=== PATIENT | female | born 1970 | race Caucasian/White ===

== ENCOUNTER → 2019-04-20 15:07 | Outpatient (CLI) | payer OTHER, SELFPAY ==
--- NOTE | 2019-04-20 15:09 | DI.US.S_ITS ---
PROCEDURE: US PELVIC COMPLETE INDICATIONS: EXCESSIVE MENSTRUAL FLOW TECHNIQUE: Real-time scanning was performed of the pelvic organs, with image documentation. Additional endovaginal scanning was necessary due to incomplete visualization of the adnexal and endometrial structures by transabdominal scanning. COMPARISON: None. FINDINGS: Transabdominal scanning: Limited scanning through the kidneys shows no hydronephrosis. No pathologic free abdominal or pelvic fluid. Endovaginal scanning: Uterus: Uterus is enlarged in size at 7.2 x 8.4 x 5.4 cm. The endometrium measures 8.0 mm in combined thickness. Multiple uterine fibroids present the largest of which is fundal and subserosal measuring 5.1 x 3.4 x 4.4 cm. Ovaries: Regressing physiologic cyst associated with the left ovary measuring 13 mm; otherwise ovaries are normal. IMPRESSION: Fibroid uterus. Dictated by: Ender MERINO Interpreted: Ute Nzaario MD on 04/20/2019 at 16:41 Approved by: Ute Nazario M.D. on 04/20/2019 at 18:15
== END ==
PROVIDERS: PCP Physician Assistant; Referring Provider Obstetrics & Gynecology; Visit Provider Obstetrics & Gynecology
DX: N92.0 Excessive and frequent menstruation with regular cycle (principal); D25.2 Subserosal leiomyoma of uterus
CPT/HCPCS: 76830; 76856

== ENCOUNTER → 2021-11-24 09:01 | Outpatient (CLI) | payer OTHER, SELFPAY ==
[2021-11-24 11:55] LABS: COVID19 -Nasal RAPID Negative (Negative)
== END ==
PROVIDERS: PCP Physician Assistant; Visit Provider Surgery
DX: Z20.822 Contact with and (suspected) exposure to COVID-19 (principal); Z01.812 Encounter for preprocedural laboratory examination
CPT/HCPCS: 87635; C9803

== ENCOUNTER 2021-11-25 13:17 | Day surgery (SDC) | payer OTHER, SELFPAY ==
[2021-11-25] VITALS (7 sets, daily range): BP systolic 94–152; BP diastolic 64–98; PULSE 78–99; RESP 12–18; TEMP 36.5–37; O2SAT 96–100; BMI 23.9
--- NOTE | 2021-11-25 | PATH_ITS ---
[facility] Accession Number: [id number] . 01 Material submitted: . PART A: sigmoid colon - SIGMOID COLON POLYP PART B: colon - DESCENDING COLON POLYP . 01 Diagnosis: A. Sigmoid Colon, Polyp, Biopsy: Hyperplastic polyp. . B. Descending Colon, Polyp, Biopsy: Multiple fragments of tubulovillous adenoma. No evidence of malignancy or high-grade dysplasia. MRV 11/27/2021 1200 Local . 01 Electronically signed: . Samantha Tariq MD, Pathologist NPI- [id number] . 01 Gross description: . Part A: SIGMOID COLON POLYP: Received in formalin is 1 fragment(s) of osei, soft tissue measuring 0.4 x 0.3 x 0.2 cm submitted entirely in 1 cassette(s) Part B: DESCENDING COLON POLYP: Received in formalin are multiple fragment(s) of osei, soft tissue measuring 1.5 x 1.0 x 0.5 cm to 1.5 x 0.5 x 0.1 cm which is bisected and submitted entirely in 2 cassette(s) /CPE 11/26/2021 0536 Local . 01 Pathologist provided ICD-10: D12.4 . 01 CPT . 777299, [id number] Performed at: 01 [facility] Cytology [address], [id number] MD Gerard Santiago MD Phone: [phone]
[2021-11-25] MEDS: LACTATED RINGERS 1,000 ML 200 ML IV (13:49)
--- NOTE | 2021-11-25 14:07 | P.HP_ITS ---
History of Present Illness History of Present Illness Date Patient Seen: 11/25/21 Time Patient Seen: 14:07 Chief complaint: SDC Narrative: The patient presents for colorectal screening. She had previously normal colonoscopy. No personal or family history of colon cancer. On further history denies any recent gastrointestinal symptoms. Patient History Medical History Chicken pox (~1974) Family history of breast cancer in first degree relative History of therapy for infertility JAYA (stress urinary incontinence, female) Surgical History Anesthesia History of breast augmentation (~06/2001) Status post colonoscopy Status post dilation and curettage (09/18/13) Family & Social History Family History Father Diabetes mellitus Mother Breast cancer Hypertension Grandmother Lung cancer Social History: household members spouse Tobacco & Substance use: Smoking Status Never smoker alcohol intake frequency a few times a month Substance Use Type does not use Meds Home Medications and Allergies Home Medications Medication Instructions Recorded Confirmed Type lisinopril 10 1 tab PO DAILY 11/25/21 11/25/21 History mg-hydrochlorothiazide 12.5 mg tablet Allergies Allergy/AdvReac Type Severity Reaction Status Date / Time morphine Allergy Hives Verified 11/25/21 13:52 Exam Vital Signs (past 8 hours): - 11/25/21 13:32 Temperature 97.7 F Pulse Rate 78 Respiratory Rate 16 Blood Pressure 131/82 Pulse Oximetry 100 Oxygen Delivery Method Room Air Oxygen Delivery Method Room Air Narrative Exam Narrative: General adult woman alert oriented no acute distress Abdomen soft nontender nondistended Assessment & Plan Assessment & Plan narrative: The patient requires colorectal screening and colonoscopy is recommended. Technical details were discussed. Risks, benefits, alternatives explained. Risks including but not limited to myocardial infarction, aspiration, bleeding, pain, missed lesion, incomplete examination, need for further radiographic studies, colonic perforation, and need for major abdominal surgery were discussed. All questions were answered to their satisfaction, and they are in a greement with this plan. Time Spent With Patient Critical Care time: I spent a total of [] minutes of critical care time on this patient's care today; this time is exclusive of procedural time.
[2021-11-25] MEDS: ONDANSETRON 4 MG/2 ML INJ IV (14:17)
[2021-11-25] MEDS: fentaNYL 100 MCG/2 ML INJ 200 MCG IV (14:38)
[2021-11-25] MEDS: MIDAZOLAM 5 MG/5 ML VIAL 7 MG IV (14:38)
--- NOTE | 2021-11-25 14:48 | PM.OP.COLON ---
Operative Date/Time/Diagnoses Date of procedure: 11/25/21 Time of procedure: 14:48 Pre-op diagnosis: Screening Procedure & Clinicians Study performed: Colonoscopy and polypectomy Same procedure as scheduled: Yes Indications: Screening Surgeon: Bill Martin Procedure Notes Procedure in detail: Medications: Conscious sedation using 7mg IV midazolam and 200mcg IV of fentanyl The history and physical was performed/updated and the patient is ASA class is 2. The procedure was discussed in detail with the patient. Potential risks complications including infection, bleeding, missed diagnosis, perforation, need for surgery, and were explained. Their questions were answered and informed consent was obtained. Patient was brought to the procedure room and placed standard monitoring equipment. The patient's vital signs were monitored continuously throughout the entire procedure. Prior to starting time-out was performed. The patient was placed in the left lateral recumbent position. Procedural sedation was administered. Examination began with a thorough inspection of the perianal area there was no evidence of fissures, fistulae, external hemorrhoids or cutaneous malignancy. The colonoscopy scope was then placed into the anal canal and was advanced to the cecum, which was identified by the ileocecal valve, the appendiceal orifice and the confluence of the taenia. The scope was then slowly withdrawn examining colon thoroughly in all directions, irrigating it of any residual stool. FINDINGS 1. Sigmoid colon-5 mm polyp removed with biopsy forceps 2. Descending colon 70 cm from the anal verge pedunculated 1.5 cm polyp removed with hot snare in pieces tattoo injected total of 2 mL prox to lesion The patient tolerated the procedure well. They will be discharged once criteria are met. The prep was of good/excellent quality. The withdrawl time was 8 minutes. The sedation time was 24 minutes. Specimen(s): other (Sigmoid colon polyp, descending colon polyp) Complications: none Impression: Colonic polyp Post-procedure Recommendations: Will call with biopsy results Disposition: same day surgery
== END 2021-11-25 15:44 | disposition home or self-care (01) ==
PROVIDERS: PCP Physician Assistant; Referring Provider Surgery; Visit Provider Surgery
PROC: 0DJD8ZZ Inspection of Lower Intestinal Tract, Via Natural or Artificial Opening Endoscopic (ICD-10-PCS; CPT 45378; principal; 2021-11-25 14:15)
DX: Z12.11 Encounter for screening for malignant neoplasm of colon (principal); D12.4 Benign neoplasm of descending colon
CPT/HCPCS: 45385; 45380; 45381; 99152; 99153; J2250; J2405; J3010

== ENCOUNTER → 2022-09-03 15:15 | Outpatient (CLI) | payer OTHER, SELFPAY ==
--- NOTE | 2022-09-03 15:16 | DI.US.S_ITS ---
PROCEDURE: US PELVIC COMPLETE INDICATIONS: HX OF FIBROIDS SWELLING FELT INSIDE VAGINA TECHNIQUE: Real-time scanning was performed of the pelvic organs, with image documentation. Additional endovaginal scanning was necessary due to incomplete visualization of the adnexal and endometrial structures by transabdominal scanning. COMPARISON: [facility], , US PELVIC COMPLETE, 04/20/2019, 15:25. FINDINGS: Uterus: Uterus is retroverted and enlarged in size at 7.5 x 7.6 x 8.7 cm. The myometrium is heterogeneous, containing innumerable fibroids. The endometrium measures 9 mm combined thickness. Nabothian cysts present. Largest uterine fibroids as follows: -left, posterior, subserosal fibroid measuring 3.6 x 3.9 x 3.3 cm, previously 3.9 x 3.0 x 3.2 cm. -right, anterior, fundal subserosal fibroid measuring 3.3 x 2.7 x 3.7 cm, previously 5.1 x 3.4 x 4.4 cm. Ovaries: The right ovary measures 2.6 x 2.1 x 2.5 cm, with a calculated ovarian volume of 7 cc. The left ovary measures 4.1 x 3.4 x 3.9 cm, with a calculated ovarian volume of 28 cc. Left ovarian cystic lesion with a mildly thickened wall measuring 2.7 cm. Other: No pathologic free abdominal or pelvic fluid. IMPRESSION: Myomatous uterus, with slight interval decrease in size of the dominant uterine fibroids. Left ovarian cystic lesion with a thick wall measuring 2.7 cm. Recommend follow-up in 6-12 weeks. We strive to produce accurate, complete, and clear reports of imaging services. To assist us in improving patient care, this report was composed using standard report templates and voice recognition software. Therefore, it may contain abnormal punctuation, insertions and/or omissions. Occasional wrong-word or sound-alike substitutions may occur. Though we review the report and make efforts to correct it, we do recommend that the report be read carefully in proper context to recognize any text inaccuracies. Dictated by: Rajesh Ibarra M.D. on 09/03/2022 at 17:08 Approved by: Rajesh Ibarra M.D. on 09/03/2022 at 17:11
== END ==
PROVIDERS: PCP Physician Assistant; Referring Provider Specialist; Visit Provider Specialist
DX: D25.2 Subserosal leiomyoma of uterus (principal); N83.202 Unspecified ovarian cyst, left side; N88.8 Other specified noninflammatory disorders of cervix uteri; Z86.018 Personal history of other benign neoplasm
CPT/HCPCS: 76830; 76856

== ENCOUNTER 2023-01-01 15:00 | Outpatient (RCR) | payer OTHER, SELFPAY ==
--- NOTE | 2022-12-18 18:42 | PT.OIE ---
Current Diagnoses Stress incontinence (female) (male) (12/18/22) Uterovaginal prolapse, unspecified (12/18/22) Past Medical History (Last Reviewed 11/25/21 @ 14:08 by Bill Martin MD) Chicken pox (~1974) Family history of breast cancer in first degree relative History of therapy for infertility JAYA (stress urinary incontinence, female) Past Surgical History (Last Reviewed 11/25/21 @ 14:08 by Bill Martin MD) Anesthesia History of breast augmentation (~06/2001) Status post colonoscopy Status post dilation and curettage (09/18/13) Visit Care Team Role Provider Type Dia Hylton PA-C Family Provider Non-Staff Primary Care Provider Specialty: Medical Address: [address] [place] [address], [id number] Email: Maria G Anand MD Attending Provider Physician Referring Provider Specialty: DIRECTOR CORRECTIONAL AGENCY Address: [address] [place] [address], [id number] Email: [email or web address] Physical Therapy Initial Evaluation PT-OP-A Visit Information Start: 12/10/22 08:08 Freq: Status: Active Protocol: Document 12/18/22 12:31 LRN (Rec: 12/18/22 17:58 LRN [id number]) Out-Patient Physical Therapy Visit Information Visit Information Visit Type Initial Evaluation Visit Start Time 12:31 Visit Stop Time 13:19 Total Visit Minutes 48 Visit Number 1 Evaluation Information Evaluation Date 12/18/22 Precautions Precautions Chronic vertigo - avoid lying pt full supine, HBP controlled by meds. PT-OP-B Current Condition Start: 12/10/22 08:08 Freq: Status: Active Protocol: Document 12/18/22 12:31 LRN (Rec: 12/18/22 17:58 LRN [id number]) Current Condition History of Current Condition Onset Date 09/2022 Current Complaints Prolapse starting History of Current Condition Pt noticed in September, she felt swollen during her period and was told she had a prolapse. To avoid surgery she is trying physical therapy first. States her bladder is to the hymen. Prior Treatments and Tests None Developmental History Developmental History G3,P1. All vaginal births. With was initially scheduled for , but jersey knitter had her deliver in squat position; therefore she reports suffered internal tearing of PF. Treatment Goals Patient/Caregiver Goals Eliminate feeling of bulge during her period. Reduce the need for surgical intervention. HEP. Proper breathing with activities. Bowel management. Personal Factors Other Personal Factors That May Effect Vertigo: Dizziness with supine Therapy/Recovery lying and sometimes transitioning supine <> sit or turning head. PT-OP-C Subjective Start: 12/10/22 08:08 Freq: Status: Active Protocol: Document 12/18/22 12:31 LRN (Rec: 12/18/22 17:58 LRN [id number]) Patient Questionnaires Pelvic Pain and Urgency/Frequency Patient Symptom Scale Pelvic Pain Score 2 PT-OP-I Pelvic Floor Start: 12/10/22 08:08 Freq: Status: Active Protocol: Document 12/18/22 12:31 LRN (Rec: 12/18/22 17:58 LRN [id number]) Pelvic Floor Assessment Urine Urinary Symptoms Prolapse,Dribbling After Urination,Incomplete Emptying, Falling Out Feeling/Heavy Other Urinary Symptoms Swollen during her period, not present after her period. Symptoms during her period only. Leakage Size Small Leakage Cause Sneeze Other Leakage Causes Running Leaks Per Day 0 Nocturia 0 Pads Used In 24 Hours 0 Bowel Other Bowel Symptoms Occasionally constipated Bowel Movement Frequency Daily except every 2 weeks has type 1 BM. [place] Stool Chart Comments Type 3-4 normally Prolapse Cystocele Grade 3 Perineal Descent Resting Absent Bearing Absent Contraction Ability Manual Muscle Testing Left 2 Manual Muscle Testing Right 1 Manual Muscle Testing Anterior 2 Manual Muscle Testing Posterior 1 Muscle Endurance (Seconds) 10 Number of Quick Contractions In 10 5 Seconds PT-OP-J Posture/Palpation/Skin Start: 12/10/22 08:08 Freq: Status: Active Protocol: Document 12/18/22 12:31 LRN (Rec: 12/18/22 17:58 LRN [id number]) Posture Evaluation Position Standing L-Spine Posture Increased Lordosis Shoulder Posture (R) Elevated Scapula Posture (R) Rotated Up,(R) Elevated,(R ) Winged Arm Posture (L) Neutral,(R) Neutral Pelvis Posture (L) Iliac Crest Superior,(R) PSIS Posterior,(L) PSIS Inferior Weight Distribution Weight Shifted Left PT-OP-K Range of Motion Start: 12/10/22 08:08 Freq: Status: Active Protocol: Document 12/18/22 12:31 LRN (Rec: 12/18/22 17:58 LRN [id number]) Lumbar Spine Range of Motion Lumbar Spine Active Degrees Testing Position Standing Flexion 60 Extension 20 Rotation Left 30 Rotation Right 30 Lateral Flexion Left 15 Lateral Flexion Right 20 Comments Head held up to avoid dizziness. Hip Goniometric Range of Motion Hip Right Passive Testing Position Supine Internal Rotation 40 External Rotation 55 Left Passive Testing Position Supine Internal Rotation 40 External Rotation 70 PT-OP-M Strength Start: 12/10/22 08:08 Freq: Status: Active Protocol: Document 12/18/22 12:31 LRN (Rec: 12/18/22 17:58 LRN [id number]) Hip Strength Hip Manual Muscle Testing Right Comments Strength 5/5 Left External Rotation 3 Fair Comments Strength 5/5 except as indicated above. PT-OP-T Assessment and Plan Start: 12/10/22 08:08 Freq: Status: Active Protocol: Document 12/18/22 12:31 LRN (Rec: 12/18/22 17:58 LRN [id number]) Physical Therapy Assessment Rehab Potential Rehabilitation Potential Excellent Evaluation Complexity Number of Personal Factors/Comorbidities 1-2 Number of Body Systems Impaired 4 or More Clinical Presentation at Evaluation Evolving Impairments Impairments Posture,ROM,Soft Tissue Mobility,Strength,Transfers Goals Three Impairment Occasional Constipation Impairment Daily except every 2 weeks has type 1 BM. Normally BM type 3, 4 Short Term Goal (STG) Pt will be educated in bowel massage and use of deep breathing and squatty potty when having constipation. STG Duration 1 wks-12/25/22 Marketing Education Teacher Goal (LTG) Pt will be educated in bowel program with BM's of type 2, 3 , or 4 (no type 1 BM's). LTG Duration 9 wks-02/23/23 Two Impairment Cystocele with feeling of bulge during her period. Short Term Goal (STG) Pt will be able to perform a Kegel in isolation of substitute muscles. STG Duration 4 wks-01/15/23 Marketing Education Teacher Goal (LTG) Strengthen PF to eliminate feeling of bulge during her period. LTG Duration 9 wks-02/23/23 One Impairment Pt lacks self care HEP. Short Term Goal (STG) Pt educated in transfers, coordinated with breathing to lessen core abdominal pressure . STG Duration 2 wks-01/01/23 Marketing Education Teacher Goal (LTG) Pt will be independent in a self care HEP for PF strengthening & hip mobility ( R ER) and strengthening (L hip ER) exercises. LTG Duration 9 wks-02/23/23 Assessment Summary Assessment Pt is a 52 yo female with stress urinary incontinence due to PF weakness, and grade 3 cystocele that is not out of hymen in supine. She reports urinary leakage with sneezing or running and has a feeling of prolapse when she is on her period. The pt will benefit from skilled physical therapy for core pressure management, PF strengthening to decrease urinary leakage, improve coordination of contractions, behavior modification in her bowel voiding to decrease her level of bowel incontinence and work to normalize bowel type. HEP/self care management. Manual therapy will be helpful to improve abdominal soft tissue mobility for bowel/bladder management. The pt's progress may be slow due to her chronic vertigo limiting her ability to be placed in different positions. Physical Therapy Plan Frequency and Duration Frequency of Treatment 1x/Week Duration of treatment (weeks) 9 Plan of Care Start Date 12/18/22 Plan of Care End Date 02/23/23 Therapeutic Interventions Therapeutic Interventions Home Exercise Program,Manual Therapy,Neuromuscular Re- education,Self-Care/Home Management,Soft Tissue Mobilization,Therapeutic Activities,Therapeutic Exercises Modalities Biofeedback,Electric Stimulation Next Visit Focus/Plan Next Note Type Treatment Note Next Visit Plan POC: Pt education, Manual therapy. Biofeedback with vaginal sensor. Therapeutic Exercises, Therapeutic Activities, Neuromuscular Reeducation. Next: Review bladder diary, pt education in bowel massage and assess deep breathing for training for BM when constipated. Discuss squatty potty. Biofeedback with vaginal/ rectal/surface sensor(s). Ex: reduction of intra- abdominal pressure with proper breathing with transfers and body mechanics, proper Kegel without use of substitute muscles. Ther Ex: PF/hip strengthening (L ER), improve R hip ER, and standing posture. Educate/discuss: stool types, foods, water intake, proper posture (sit/stand). STM of abdomen (and urachus) & bladder mobility.
--- NOTE | 2022-12-18 18:42 | PT.OPPOC ---
Physical, Occupational & Speech Therapy At [facility] Current Diagnoses Stress incontinence (female) (male) (12/18/22) Uterovaginal prolapse, unspecified (12/18/22) Visit Care Team Role Provider Type Dia Hylton PA-C Family Provider Non-Staff Primary Care Provider Specialty: Medical Address: [address] [place] [address], [id number] Email: Maria G Anand MD Attending Provider Physician Referring Provider Specialty: SAND CUTTER OPERATOR Address: [address] [place] [address], [id number] Email: [email or web address] Plan Of Care PT-OP-T Assessment and Plan Start: 12/10/22 08:08 Freq: Status: Active Protocol: Document 12/18/22 12:31 LRN (Rec: 12/18/22 17:58 LRN [id number]) Physical Therapy Assessment Rehab Potential Rehabilitation Potential Excellent Evaluation Complexity Number of Personal Factors/Comorbidities 1-2 Number of Body Systems Impaired 4 or More Clinical Presentation at Evaluation Evolving Impairments Impairments Posture,ROM,Soft Tissue Mobility,Strength,Transfers Goals Three Impairment Occasional Constipation Impairment Daily except every 2 weeks has type 1 BM. Normally BM type 3, 4 Short Term Goal (STG) Pt will be educated in bowel massage and use of deep breathing and squatty potty when having constipation. STG Duration 1 wks-12/25/22 Custodial Goal (LTG) Pt will be educated in bowel program with BM's of type 2, 3 , or 4 (no type 1 BM's). LTG Duration 9 wks-02/23/23 Two Impairment Cystocele with feeling of bulge during her period. Short Term Goal (STG) Pt will be able to perform a Kegel in isolation of substitute muscles. STG Duration 4 wks-01/15/23 Custodial Goal (LTG) Strengthen PF to eliminate feeling of bulge during her period. LTG Duration 9 wks-02/23/23 One Impairment Pt lacks self care HEP. Short Term Goal (STG) Pt educated in transfers, coordinated with breathing to lessen core abdominal pressure . STG Duration 2 wks-01/01/23 Custodial Goal (LTG) Pt will be independent in a self care HEP for PF strengthening & hip mobility ( R ER) and strengthening (L hip ER) exercises. LTG Duration 9 wks-02/23/23 Assessment Summary Assessment Pt is a 52 yo female with stress urinary incontinence due to PF weakness, and grade 3 cystocele that is not out of hymen in supine. She reports urinary leakage with sneezing or running and has a feeling of prolapse when she is on her period. The pt will benefit from skilled physical therapy for core pressure management, PF strengthening to decrease urinary leakage, improve coordination of contractions, behavior modification in her bowel voiding to decrease her level of bowel incontinence and work to normalize bowel type. HEP/self care management. Manual therapy will be helpful to improve abdominal soft tissue mobility for bowel/bladder management. The pt's progress may be slow due to her chronic vertigo limiting her ability to be placed in different positions. Physical Therapy Plan Frequency and Duration Frequency of Treatment 1x/Week Duration of treatment (weeks) 9 Plan of Care Start Date 12/18/22 Plan of Care End Date 02/23/23 Therapeutic Interventions Therapeutic Interventions Home Exercise Program,Manual Therapy,Neuromuscular Re- education,Self-Care/Home Management,Soft Tissue Mobilization,Therapeutic Activities,Therapeutic Exercises Modalities Biofeedback,Electric Stimulation Next Visit Focus/Plan Next Note Type Treatment Note Next Visit Plan POC: Pt education, Manual therapy. Biofeedback with vaginal sensor. Therapeutic Exercises, Therapeutic Activities, Neuromuscular Reeducation. Next: Review bladder diary, pt education in bowel massage and assess deep breathing for training for BM when constipated. Discuss squatty potty. Biofeedback with vaginal/ rectal/surface sensor(s). Ex: reduction of intra- abdominal pressure with proper breathing with transfers and body mechanics, proper Kegel without use of substitute muscles. Ther Ex: PF/hip strengthening (L ER), improve R hip ER, and standing posture. Educate/discuss: stool types, foods, water intake, proper posture (sit/stand). STM of abdomen (and urachus) & bladder mobility. Plan of Care Dates Plan of Care Start Date 12/18/22 Plan of Care End Date 02/23/23 Electronically Signed by: Tamiko Hernandez, PT 12/18/22 6071 If you are in agreement with this Plan of Care, please return a signed and dated copy. I have reviewed this Plan of Care and certify that the skilled therapy services above are required to meet the patient?s needs. Physician Signature Date Printed Name and Credentials Clinical Instructor Signature Printed Name and Credentials
--- NOTE | 2022-12-25 11:20 | PT.OTN ---
Current Diagnoses Stress incontinence (female) (male) (12/25/22) Uterovaginal prolapse, unspecified (12/25/22) Physical Therapy Treatment Note PT-OP-A Visit Information Start: 12/10/22 08:08 Freq: Status: Active Protocol: Document 12/25/22 10:36 LRN (Rec: 12/25/22 11:20 LRN [id number]) Out-Patient Physical Therapy Visit Information Visit Information Visit Type Treatment Note Visit Start Time 10:36 Visit Stop Time 11:11 Total Visit Minutes 35 Visit Number 2 Evaluation Information Evaluation Date 12/18/22 Precautions Precautions Chronic vertigo - avoid lying pt full supine, HBP controlled by meds. PT-OP-B Current Condition Start: 12/10/22 08:08 Freq: Status: Active Protocol: Document 12/18/22 12:31 LRN (Rec: 12/18/22 17:58 LRN [id number]) Current Condition History of Current Condition Onset Date 09/2022 Current Complaints Prolapse starting History of Current Condition Pt noticed in September, she felt swollen during her period and was told she had a prolapse. To avoid surgery she is trying physical therapy first. States her bladder is to the hymen. Prior Treatments and Tests None Developmental History Developmental History G3,P1. All vaginal births. With was initially scheduled for , but event marketing manager had her deliver in squat position; therefore she reports suffered internal tearing of PF. Treatment Goals Patient/Caregiver Goals Eliminate feeling of bulge during her period. Reduce the need for surgical intervention. HEP. Proper breathing with activities. Bowel management. Personal Factors Other Personal Factors That May Effect Vertigo: Dizziness with supine Therapy/Recovery lying and sometimes transitioning supine <> sit or turning head. PT-OP-C Subjective Start: 12/10/22 08:08 Freq: Status: Active Protocol: Document 12/25/22 10:36 LRN (Rec: 12/25/22 11:20 LRN [id number]) OP-PT Subjective Patient Comments Patient Comments Forgot bladder diary in car. Pt states she urinates for 18- 20 secs, 6-7/day, normal BM's. PT-OP-I Pelvic Floor Start: 12/10/22 08:08 Freq: Status: Active Protocol: Document 12/25/22 10:36 LRN (Rec: 12/25/22 11:20 LRN [id number]) Pelvic Floor Assessment SEMG (uV) Baseline 3.6 Quick Contraction 20.7 Recruitment Pattern Good Relaxation Poor/Slow Holding Fair Stability of Hold Fair SEMG Stability of Rest Poor/Slow Comments Pelvic Floor Comments Quick Flicks: 10 reps strength (uV's): avg work 20.3, avg rest 19.2. 20 reps strength (uV's): avg work 13.0, avg rest 11.5. Long Holds: 10 reps strength (uV's): avg work 25.4, avg rest 7.7. 20 reps strength (uV's): avg work 24.5, avg rest 6.6. PT-OP-J Posture/Palpation/Skin Start: 12/10/22 08:08 Freq: Status: Active Protocol: Document 12/18/22 12:31 LRN (Rec: 12/18/22 17:58 [facility] [id number]) Posture Evaluation Position Standing L-Spine Posture Increased Lordosis Shoulder Posture (R) Elevated Scapula Posture (R) Rotated Up,(R) Elevated,(R ) Winged Arm Posture (L) Neutral,(R) Neutral Pelvis Posture (L) Iliac Crest Superior,(R) PSIS Posterior,(L) PSIS Inferior Weight Distribution Weight Shifted Left PT-OP-K Range of Motion Start: 12/10/22 08:08 Freq: Status: Active Protocol: Document 12/18/22 12:31 LRN (Rec: 12/18/22 17:58 [facility] [id number]) Lumbar Spine Range of Motion Lumbar Spine Active Degrees Testing Position Standing Flexion 60 Extension 20 Rotation Left 30 Rotation Right 30 Lateral Flexion Left 15 Lateral Flexion Right 20 Comments Head held up to avoid dizziness. Hip Goniometric Range of Motion Hip Right Passive Testing Position Supine Internal Rotation 40 External Rotation 55 Left Passive Testing Position Supine Internal Rotation 40 External Rotation 70 PT-OP-M Strength Start: 12/10/22 08:08 Freq: Status: Active Protocol: Document 12/18/22 12:31 LRN (Rec: 12/18/22 17:58 [facility] [id number]) Hip Strength Hip Manual Muscle Testing Right Comments Strength 5/5 Left External Rotation 3 Fair Comments Strength 5/5 except as indicated above. PT-OP-Q Treatments Start: 12/10/22 08:08 Freq: Status: Active Protocol: Document 12/25/22 10:36 LRN (Rec: 12/25/22 11:20 LRN [id number]) Therapeutic Exercises Supine Exercises PF Long Holds' Supine Exercise Name PF long Hold Contractions Equipment Used bolster under knees Reps/Minutes 20x Comments see PF assessment above PF Quick Contractions Supine Exercise Name Quick PF contractions Resistance bolster under knees Equipment Used 20x Comments see PF assessment above PF baseline Supine Exercise Name Supine Equipment Used bolster under knees Comments Extra time taken for electrode placement, see PF assessment above Neuro Re-Education Treatment Other Activities PF Awareness Details PF resting tone awareness after long hold contractions Reps/Duration 5' Comments Pt able to obtain a very low resting tone (0.1mV) after contractions if watching biofeedback. Sometimes had resting tone of 3.0mV's. Self-Care/Home Management Treatment Education Other Education Discussed bladder diary as pt recalled it. Reviewed verbally Kegel ex's - quick and long hold contractions. PT-OP-T Assessment and Plan Start: 12/10/22 08:08 Freq: Status: Active Protocol: Document 12/25/22 10:36 LRN (Rec: 12/25/22 11:20 LRN [id number]) Physical Therapy Assessment Goals Three Impairment Occasional Constipation Impairment Daily except every 2 weeks has type 1 BM. Normally BM type 3, 4 Short Term Goal (STG) Pt will be educated in bowel massage and use of deep breathing and squatty potty when having constipation. STG Duration 1 wks-12/25/22 Railroad Conductor Goal (LTG) Pt will be educated in bowel program with BM's of type 2, 3 , or 4 (no type 1 BM's). LTG Duration 9 wks-02/23/23 Two Impairment Cystocele with feeling of bulge during her period. Short Term Goal (STG) Pt will be able to perform a Kegel in isolation of substitute muscles. STG Duration 4 wks-01/15/23 Railroad Conductor Goal (LTG) Strengthen PF to eliminate feeling of bulge during her period. LTG Duration 9 wks-02/23/23 One Impairment Pt lacks self care HEP. Short Term Goal (STG) Pt educated in transfers, coordinated with breathing to lessen core abdominal pressure . STG Duration 2 wks-01/01/23 Railroad Conductor Goal (LTG) Pt will be independent in a self care HEP for PF strengthening & hip mobility ( R ER) and strengthening (L hip ER) exercises. LTG Duration 9 wks-02/23/23 Assessment Summary Assessment Pt has very high PF contraction tone, but has difficulty achieving relaxation and after contractions, with quick contractions (resting tone 13 or 11.5 mV's) worse than long holds (resting tone 7.7-6.6mV' s). Voiding times are long, frequency is normal. Physical Therapy Plan Frequency and Duration Frequency of Treatment 1x/Week Duration of treatment (weeks) 9 Plan of Care Start Date 12/18/22 Plan of Care End Date 02/23/23 Next Visit Focus/Plan Next Note Type Treatment Note Next Visit Plan POC: Pt education, Manual therapy. Biofeedback with vaginal sensor for relaxation. Therapeutic Exercises, Therapeutic Activities, Neuromuscular Reeducation. Next: Review bladder diary, pt education in bowel massage and assess deep breathing for training for BM when constipated. Discuss squatty potty. Biofeedback for PF relaxation. Ex: reduction of intra- abdominal pressure with proper breathing with transfers and body mechanics, proper Kegel without use of substitute muscles. Ther Ex: PF/hip strengthening (L ER), improve R hip ER, and standing posture. Educate/discuss: stool types, foods, water intake, proper posture (sit/stand). STM of abdomen (and urachus) & bladder mobility.
--- NOTE | 2023-01-01 16:32 | PT.OTN ---
Current Diagnoses Stress incontinence (female) (male) (01/01/23) Uterovaginal prolapse, unspecified (01/01/23) Physical Therapy Treatment Note PT-OP-A Visit Information Start: 12/10/22 08:08 Freq: Status: Active Protocol: Document 01/01/23 15:00 LRN (Rec: 01/01/23 16:32 LRN [id number]) Out-Patient Physical Therapy Visit Information Visit Information Visit Type Treatment Note Visit Start Time 15:00 Visit Stop Time 15:46 Total Visit Minutes 46 Visit Number 3 Evaluation Information Evaluation Date 12/18/22 Precautions Precautions Chronic vertigo - avoid lying pt full supine, HBP controlled by meds. PT-OP-B Current Condition Start: 12/10/22 08:08 Freq: Status: Active Protocol: Document 12/18/22 12:31 LRN (Rec: 12/18/22 17:58 LRN [id number]) Current Condition History of Current Condition Onset Date 09/2022 Current Complaints Prolapse starting History of Current Condition Pt noticed in September, she felt swollen during her period and was told she had a prolapse. To avoid surgery she is trying physical therapy first. States her bladder is to the hymen. Prior Treatments and Tests None Developmental History Developmental History G3,P1. All vaginal births. 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 Treatment Goals Patient/Caregiver Goals Eliminate feeling of bulge during her period. Reduce the need for surgical intervention. HEP. Proper breathing with activities. Bowel management. Personal Factors Other Personal Factors That May Effect Vertigo: Dizziness with supine Therapy/Recovery lying and sometimes transitioning supine <> sit or turning head. PT-OP-C Subjective Start: 12/10/22 08:08 Freq: Status: Active Protocol: Document 01/01/23 15:00 LRN (Rec: 01/01/23 16:32 LRN [id number]) OP-PT Subjective Patient Comments Patient Comments Cramps today, may be due to period starting. Not consistent with cramps related to period since periods are irregular. Has been feeling PF bulge today. PT-OP-I Pelvic Floor Start: 12/10/22 08:08 Freq: Status: Active Protocol: Document 01/01/23 15:00 LRN (Rec: 01/01/23 16:32 LRN [id number]) Pelvic Floor Assessment SEMG (uV) Baseline 1.3 PT-OP-J Posture/Palpation/Skin Start: 12/10/22 08:08 Freq: Status: Active Protocol: Document 12/18/22 12:31 LRN (Rec: 12/18/22 17:58 LRN [id number]) Posture Evaluation Position Standing L-Spine Posture Increased Lordosis Shoulder Posture (R) Elevated Scapula Posture (R) Rotated Up,(R) Elevated,(R ) Winged Arm Posture (L) Neutral,(R) Neutral Pelvis Posture (L) Iliac Crest Superior,(R) PSIS Posterior,(L) PSIS Inferior Weight Distribution Weight Shifted Left PT-OP-K Range of Motion Start: 12/10/22 08:08 Freq: Status: Active Protocol: Document 12/18/22 12:31 LRN (Rec: 12/18/22 17:58 LRN [id number]) Lumbar Spine Range of Motion Lumbar Spine Active Degrees Testing Position Standing Flexion 60 Extension 20 Rotation Left 30 Rotation Right 30 Lateral Flexion Left 15 Lateral Flexion Right 20 Comments Head held up to avoid dizziness. Hip Goniometric Range of Motion Hip Right Passive Testing Position Supine Internal Rotation 40 External Rotation 55 Left Passive Testing Position Supine Internal Rotation 40 External Rotation 70 PT-OP-M Strength Start: 12/10/22 08:08 Freq: Status: Active Protocol: Document 12/18/22 12:31 LRN (Rec: 12/18/22 17:58 LRN [id number]) Hip Strength Hip Manual Muscle Testing Right Comments Strength 5/5 Left External Rotation 3 Fair Comments Strength 5/5 except as indicated above. PT-OP-Q Treatments Start: 12/10/22 08:08 Freq: Status: Active Protocol: Document 01/01/23 15:00 LRN (Rec: 01/01/23 16:32 LRN [id number]) Therapeutic Exercises Supine Exercises Piriformis stretch Supine Exercise Name Piriformis stretch-knee to opp shdr (R>L) Side bilateral Equipment Used Tried knee to opp shdr & ankle over knee>KTC. Reps/Minutes 8' Comments surgical asst & v cuing to determine max joe stretch & best positioning Bowel massage Supine Exercise Name Bowel massage from R ASIS to L ASIS. Showed ILU massage Reps/Minutes 10' Comments PT performing first f/b pt performing Neuro Re-Education Treatment Other Activities PF Awareness Details PF contraction and relaxation training Reps/Duration 18' Comments Pt upper shdrs & head elevated due to vertigo. PF relaxation training to start. PF contractions/holds 5 secs f /b PF release for resting. Pt able to relax PF in 2 secs ( started at 3 secs) with v cuing and visual biofeedback. Cuing to slow contract and hold vs quick contract and hold. 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 Discussed her mild constipation, type 2 BM's and discussed use of fiber, fluids , BM, drinking warm water after bowel massage and squatty potty to improve ease of bowel movements. Activities Self-Care/Home Management Activities I/S pt in HEP: Hip IR stretch of Piriformis (2xR, 1xL). Pt deferred HEP handout stating she can remember the one stretch. I/S pt to practice isolated PF contractions with exhale on contraction and holding contraction x 3 breaths. PT-OP-T Assessment and Plan Start: 12/10/22 08:08 Freq: Status: Active Protocol: Document 01/01/23 15:00 LRN (Rec: 01/01/23 16:32 LRN [id number]) Physical Therapy Assessment Goals Three Impairment Occasional Constipation Impairment Daily except every 2 weeks has type 1 BM. Normally BM type 3, 4 Short Term Goal (STG) Pt will be educated in bowel massage and use of deep breathing and squatty potty when having constipation. 01/01/23: Pt educated in use of fiber, fluids, BM, drinking warm water after bowel massage and squatty potty to improve ease of bowel movements. STG Duration 1 wks-12/25/22 (01/01/23: MET GOAL) Prop And Scenery Maker Goal (LTG) Pt will be educated in bowel program with BM's of type 2, 3 , or 4 (no type 1 BM's). 01/01/23: Per bladder diary, pt having type 2, 3 BM's daily . LTG Duration 9 wks-02/23/23 (01/01/23: MET GOAL) Two Impairment Cystocele with feeling of bulge during her period. Short Term Goal (STG) Pt will be able to perform a Kegel in isolation of substitute muscles. 01/01/23: Initiated Kegel in isolation of substitute muscles. STG Duration 4 wks-01/15/23 Correction Goal (LTG) Strengthen PF to eliminate feeling of bulge during her period. LTG Duration 9 wks-02/23/23 One Impairment Pt lacks self care HEP. Short Term Goal (STG) Pt educated in transfers, coordinated with breathing to lessen core abdominal pressure . STG Duration 2 wks-01/01/23 (01/01/23: MET GOAL) Correction Goal (LTG) Pt will be independent in a self care HEP for PF strengthening & hip mobility ( R ER) and strengthening (L hip ER) exercises. 01/01/23: I/S HEP of Piriformis stretch. LTG Duration 9 wks-02/23/23 progressed Assessment Summary Assessment In standing (PF assessment) no prolapse beyond vaginal opening palpable. Semi-supine (digital assessment) uterus is not palpable, extra tissue in rectal region is present. Urethra vs the bladder appears to have dropped down into 1/2 vaginal canal visually and the bladder lifts with PF contraction (not significantly felt dropped). Primary concern is with intra- abdominal pressure management (constipation mgmt), PF relaxation after contraction and improving hip mobility (ER , AD's). Physical Therapy Plan Frequency and Duration Frequency of Treatment 1x/Week Duration of treatment (weeks) 9 Plan of Care Start Date 12/18/22 Plan of Care End Date 02/23/23 Next Visit Focus/Plan Next Note Type Treatment Note Next Visit Plan Next: STM stretch to hip AD's and HEP: Hip ER, AD's, hip flexors. PF/hip strengthening (L ER) Biofeedback for PF relaxation. Kegel without use of substitute muscles. Ex: reduction of intra- abdominal pressure with proper breathing with transfers and body mechanics, proper Ther Ex to improve standing posture. Educate/discuss: water intake, proper posture (sit/stand). STM: of abdomen (and urachus) & bladder mobility. POC: Pt education, Manual therapy. Biofeedback with vaginal sensor for relaxation. Therapeutic Exercises, Therapeutic Activities, Neuromuscular Reeducation.
--- NOTE | 2023-01-18 08:34 | PT.OPDS ---
Current Diagnoses Stress incontinence (female) (male) (01/01/23) Uterovaginal prolapse, unspecified (01/01/23) Visit Care Team Role Provider Type Dia Hylton PA-C Family Provider Non-Staff Primary Care Provider Specialty: Medical Address: [place], [address] Email: Maria G Anand MD Attending Provider Physician Referring Provider Specialty: MD UROLOGIST Address: [address] [place] [address], [id number] Email: [email or web address] Visit Number Visit Number 3 Discharge Summary PT-OP-B Current Condition Start: 12/10/22 08:08 Freq: Status: Active Protocol: Document 12/18/22 12:31 LRN (Rec: 12/18/22 17:58 LRN [id number]) Current Condition History of Current Condition Onset Date 09/2022 Current Complaints Prolapse starting History of Current Condition Pt noticed in September, she felt swollen during her period and was told she had a prolapse. To avoid surgery she is trying physical therapy first. States her bladder is to the hymen. Prior Treatments and Tests None Developmental History Developmental History G3,P1. All vaginal births. 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 Treatment Goals Patient/Caregiver Goals Eliminate feeling of bulge during her period. Reduce the need for surgical intervention. HEP. Proper breathing with activities. Bowel management. Personal Factors Other Personal Factors That May Effect Vertigo: Dizziness with supine Therapy/Recovery lying and sometimes transitioning supine <> sit or turning head. PT-OP-C Subjective Start: 12/10/22 08:08 Freq: Status: Active Protocol: Document 01/01/23 15:00 LRN (Rec: 01/01/23 16:32 LRN [id number]) OP-PT Subjective Patient Comments Patient Comments Cramps today, may be due to period starting. Not consistent with cramps related to period since periods are irregular. Has been feeling PF bulge today. PT-OP-I Pelvic Floor Start: 12/10/22 08:08 Freq: Status: Active Protocol: Document 01/01/23 15:00 LRN (Rec: 01/01/23 16:32 LRN [id number]) Pelvic Floor Assessment SEMG (uV) Baseline 1.3 PT-OP-J Posture/Palpation/Skin Start: 12/10/22 08:08 Freq: Status: Active Protocol: Document 12/18/22 12:31 LRN (Rec: 12/18/22 17:58 LRN [id number]) Posture Evaluation Position Standing L-Spine Posture Increased Lordosis Shoulder Posture (R) Elevated Scapula Posture (R) Rotated Up,(R) Elevated,(R ) Winged Arm Posture (L) Neutral,(R) Neutral Pelvis Posture (L) Iliac Crest Superior,(R) PSIS Posterior,(L) PSIS Inferior Weight Distribution Weight Shifted Left PT-OP-K Range of Motion Start: 12/10/22 08:08 Freq: Status: Active Protocol: Document 12/18/22 12:31 LRN (Rec: 12/18/22 17:58 LRN [id number]) Lumbar Spine Range of Motion Lumbar Spine Active Degrees Testing Position Standing Flexion 60 Extension 20 Rotation Left 30 Rotation Right 30 Lateral Flexion Left 15 Lateral Flexion Right 20 Comments Head held up to avoid dizziness. Hip Goniometric Range of Motion Hip Right Passive Testing Position Supine Internal Rotation 40 External Rotation 55 Left Passive Testing Position Supine Internal Rotation 40 External Rotation 70 PT-OP-M Strength Start: 12/10/22 08:08 Freq: Status: Active Protocol: Document 12/18/22 12:31 LRN (Rec: 12/18/22 17:58 LRN [id number]) Hip Strength Hip Manual Muscle Testing Right Comments Strength 5/5 Left External Rotation 3 Fair Comments Strength 5/5 except as indicated above. PT-OP-T Assessment and Plan Start: 12/10/22 08:08 Freq: Status: Active Protocol: Document 01/18/23 08:31 LRN (Rec: 01/18/23 08:34 LRN [id number]) Physical Therapy Assessment Goals Three Impairment Occasional Constipation Impairment Daily except every 2 weeks has type 1 BM. Normally BM type 3, 4 Short Term Goal (STG) Pt will be educated in bowel massage and use of deep breathing and squatty potty when having constipation. 01/01/23: Pt educated in use of fiber, fluids, BM, drinking warm water after bowel massage and squatty potty to improve ease of bowel movements. STG Duration 1 wks-12/25/22 (01/01/23: MET GOAL) Usp Goal (LTG) Pt will be educated in bowel program with BM's of type 2, 3 , or 4 (no type 1 BM's). 01/01/23: Per bladder diary, pt having type 2, 3 BM's daily . LTG Duration 9 wks-02/23/23 (01/01/23: MET GOAL) Two Impairment Cystocele with feeling of bulge during her period. Short Term Goal (STG) Pt will be able to perform a Kegel in isolation of substitute muscles. 01/01/23: Initiated Kegel in isolation of substitute muscles. STG Duration 4 wks-01/15/23 Usp Goal (LTG) Strengthen PF to eliminate feeling of bulge during her period. LTG Duration 9 wks-02/23/23 One Impairment Pt lacks self care HEP. Short Term Goal (STG) Pt educated in transfers, coordinated with breathing to lessen core abdominal pressure . STG Duration 2 wks-01/01/23 (01/01/23: MET GOAL) Usp Goal (LTG) Pt will be independent in a self care HEP for PF strengthening & hip mobility ( R ER) and strengthening (L hip ER) exercises. 01/01/23: I/S HEP of Piriformis stretch. LTG Duration 9 wks-02/23/23 progressed Assessment Summary Assessment Pt has been seen for eval and 2 therapy visits. Message received of request for discharge from PT on 01/15/23. Goals not met due to early discharge. Physical Therapy Plan Discharge Physical Therapy Discharge Reasons Patient Request Discharge Comments Thank you for your referral.
== END 2023-01-19 12:27 | disposition home or self-care (01) ==
LOC: PHYS 15:00
PROVIDERS: Absent Provider Physician Assistant; Family Provider Physician Assistant; PCP Physician Assistant; Referring Provider Specialist; Visit Provider Specialist
DX: N81.4 Uterovaginal prolapse, unspecified (principal); N39.3 Stress incontinence (female) (male)
CPT/HCPCS: 97110; 97112; 97162; 97535

== ENCOUNTER → 2025-02-11 11:08 | Outpatient (CLI) | payer OTHER, SELFPAY ==
--- NOTE | 2025-02-11 11:10 | DI.RAD.S_ITS ---
PROCEDURE: XR FINGER LT MIN 2V INDICATIONS: Rule out fracture/avulsion left thumb IP joint TECHNIQUE: AP hand, 2 views of the 1st finger(s) acquired. COMPARISON: None. FINDINGS: Bones: No fractures or dislocations. No suspicious bony lesions. Soft tissues: No suspicious soft tissue calcifications. IMPRESSION: No acute bony abnormality. Dictated by: Rajesh Ibarra M.D. on 02/11/2025 at 10:28 Approved by: Rajesh Ibarra M.D. on 02/11/2025 at 10:28
== END ==
PROVIDERS: Family Provider Physician Assistant; PCP Physician Assistant; Referring Provider Chiropractor; Visit Provider Chiropractor
DX: S63.682A Other sprain of left thumb, initial encounter (principal); X58.XXXA Exposure to other specified factors, initial encounter
CPT/HCPCS: 73140